=== PATIENT | female | born 1965 | race Caucasian/White ===

== ENCOUNTER → 2021-07-22 | Outpatient (CLI) | payer MEDICARE ==
[~2021-07-22] MED LIST: HYDROCODON-ACE1 EAC4 PO; IBUPROFEN600 MG PO; INDOCIN 50 MG C50 MG PO; KEFLEX500 MG PO; LISINOPRIL5 MG PO; MEDROXYPROGESTE10 MG PO; MIRAPEX0.25 MG PO; MYRBETRIQ25 MG PO; NAPROSYN500 MG PO; NORCO 5-325 TA1 EACH PO; SULINDAC150 MG PO; TRAMADOL HCL50 MG PO
== END ==
LOC: KOH-I 12:44
DX: M25.572 Pain in left ankle and joints of left foot (principal); M79.672 Pain in left foot
CPT/HCPCS: 73610; 73630

== ENCOUNTER → 2021-09-04 | Outpatient (CLI) | payer MEDICARE | LOC: KOH-I 08:35 | DX: M25.572 Pain in left ankle and joints of left foot (principal); S96.812A Strain of other specified muscles and tendons at ankle and foot level, left foot, initial encounter | CPT/HCPCS: 73721 ==

== ENCOUNTER 2021-09-09 23:33 | Emergency (ER) | payer MEDICARE ==
[2021-09-10 00:08] LABS: HEMOGLOBIN 14.1 gm/dl (12.3-15.3); RED BLOOD COUNT 4.63 M/UL (4.00-5.10); WHITE BLOOD COUNT 12.4 K/UL (4.5-11.0)
[2021-09-10] MEDS ORDERED: ZOFRAN 4 MG TAB4 MG PO (06:28)
[2021-09-10] MEDS ORDERED: AMOX TR-K CLV1 EAC4 PO (06:28)
== END 2021-09-10 06:35 | disposition home or self-care (01) ==
LOC: ER1 23:33
PROVIDERS: Student in an Organized Health Care Education/Training Program
DX: K57.32 Diverticulitis of large intestine without perforation or abscess without bleeding (principal); E78.5 Hyperlipidemia, unspecified; F17.210 Nicotine dependence, cigarettes, uncomplicated; Z90.49 Acquired absence of other specified parts of digestive tract; Z90.710 Acquired absence of both cervix and uterus; Z90.89 Acquired absence of other organs; Z88.8 Allergy status to other drugs, medicaments and biological substances
CPT/HCPCS: 80053; 81001; 83690; 85025; 99284; J2270; J2405; Q9967